=== PATIENT | male | born 1990 | race Caucasian/White ===

== ENCOUNTER 2020-05-14 02:08 | Observation (INO) ==
[2020-05-14] MEDS ORDERED: Naloxone 0.4 MG/ML INJ IVP PRN ×2 (06:25→17:14)
[2020-05-14] MEDS ORDERED: *HR* Belladonna Alkaloids/Opium 60 MG RECTAL SUPPOSITORY RC PRN ×2 (06:25→17:14)
[2020-05-14] MEDS ORDERED: Hyoscyamine SL 0.125 MG TAB.SUBL SL PRN (06:25)
[2020-05-14] MEDS ORDERED: *HR* FentaNYL (PF) 100 MCG/2 ML VIAL IVP PRN (06:25)
[2020-05-14] MEDS ORDERED: *HR* Promethazine 25 MG/ML VIAL IVP PRN ×4 (06:25→17:14)
[2020-05-14] MEDS: 0.9 % Sodium Chloride 1,000 ML IVC SCH ×3 (06:48→17:48)
[2020-05-14] MEDS ORDERED: cefTRIAXone 1,000 MG in Water for inj. (sterile) 10 ML IVP SCH (09:00)
[2020-05-14] MEDS: Ketorolac 30 MG/ML VIAL IVP PRN ×2 (10:20→16:30)
[2020-05-14] MEDS ORDERED: *HR* FentaNYL (PF) 100 MCG/2 ML VIAL ONE ×2 (14:44→16:42)
[2020-05-14] MEDS ORDERED: *HR* Midazolam HCl 2 MG/2 ML VIAL ONE (14:45)
[2020-05-14] MEDS ORDERED: *HR* Propofol 200 MG/20 ML VIAL IVP ONE (14:45)
[2020-05-14] MEDS ORDERED: *HR* Succinylcholine 200 MG/10 ML VIAL IVP ONE (14:46)
[2020-05-14] MEDS ORDERED: Lidocaine -MPF 4% 5 ML AMPUL ONE (14:52)
[2020-05-14] MEDS ORDERED: Lidocaine -MPF 2% 2 ML VIAL ONE (14:52)
[2020-05-14] MEDS ORDERED: Isovue-300 50ML VIAL ONE (14:52)
[2020-05-14] MEDS ORDERED: Ondansetron 4 MG/2 ML VIAL ONE (14:56)
[2020-05-14] MEDS ORDERED: Dexamethasone 4 MG/ML VIAL ONE (14:56)
[2020-05-14] MEDS ORDERED: *HR* OxyCODONE Immed Rel 5 MG TABLET PO PRN (15:03)
[2020-05-14] MEDS ORDERED: Ondansetron 4 MG/2 ML VIAL IVP ONE ×2 (15:03→17:14)
[2020-05-14] MEDS ORDERED: ceFAZolin 3,000 MG in 0.9 % Sodium Chloride 100 ML IVPB ONE (15:03)
[2020-05-14] MEDS ORDERED: Acetaminophen IV 1,000 MG/100 ML BAG ONE (15:06)
[2020-05-14] MEDS ORDERED: Famotidine 20 MG/2 ML VIAL ONE (15:06)
[2020-05-14] MEDS ORDERED: Ketorolac 30 MG/ML VIAL IVP PRN (17:14)
[2020-05-14] MEDS: Hyoscyamine SL 0.125 MG TAB.SUBL SL PRN ×2 (17:47→21:02)
[2020-05-14] MEDS: Simethicone 80 MG TAB.CHEW PO PRN (20:59)
[2020-05-15] MEDS: Hyoscyamine SL 0.125 MG TAB.SUBL SL PRN ×3 (01:04→09:29)
[2020-05-15] MEDS: *HR* FentaNYL (PF) 100 MCG/2 ML VIAL IVP PRN ×3 (01:05→09:31)
[2020-05-15] MEDS: 0.9 % Sodium Chloride 1,000 ML IVC SCH (03:58)
[2020-05-15] MEDS ORDERED: cefTRIAXone 1,000 MG in Water for inj. (sterile) 10 ML IVP SCH (09:00)
[2020-05-15] MEDS: Simethicone 80 MG TAB.CHEW PO PRN (09:29)
[2020-05-15] MEDS ORDERED: polyethylene glycoL 3350 17 GM POWD.PACK PO SCH (11:00)
[2020-05-15 15:12] VITALS: BP 114/69
[2020-05-19 21:19] LABS: Calculi Mass 14 mg
== END 2020-05-15 16:17 | disposition home or self-care (01) ==
LOC: 3BNU
PROVIDERS: ADMIT Urology; ATTEND Urology